=== PATIENT | female | born 1975 ===

== ENCOUNTER 2017-07-15 09:37 | Emergency (ER) | payer OTHER ==
[2017-07-15 09:40] VITALS: BMI 38.7
[2017-07-15 09:43] VITALS: O2SAT 100
--- NOTE | 2017-07-15 09:56 | C.PDOC ---
History Of Present Illness 42 yo female, no prior hxm presents with low back pain x 2 years, getting worse. pt states pain worse to right paralumbar region, wores with movement. never saw pmd. no urinary symptoms, no hematuria. no saddle anesthesia. Time Seen by Provider: 07/15/17 09:44 Chief Complaint (Nursing): Back Pain Past Medical History Reviewed: Historical Data, Nursing Documentation, Vital Signs Vital Signs: Last Vital Signs Temp 98.0 F 07/15/17 11:35 Pulse 89 07/15/17 11:35 Resp 18 07/15/17 11:35 BP 115/75 07/15/17 11:35 Pulse Ox 100 07/15/17 12:07 - Medical History PMH: Back Problems Family History: States: Unknown Family Hx - Social History Hx Alcohol Use: No Hx Substance Use: No - Immunization History Hx Tetanus Toxoid Vaccination: No Hx Influenza Vaccination: No Hx Pneumococcal Vaccination: No Review Of Systems Musculoskeletal: Positive for: Back Pain Physical Exam - Physical Exam Appears: Well, No Acute Distress Skin: Normal Color, Warm, Dry Eye(s): bilateral: Normal Inspection, PERRL, EOMI Nose: Normal Throat: Normal Neck: Normal Cardiovascular: Rhythm Regular Respiratory: Normal Breath Sounds Gastrointestinal/Abdominal: Normal Exam, Soft, No Tenderness, No Guarding, No Rebound Back: Normal Inspection, No Vertebral Tenderness, Paraspinal Tenderness ((+) lumbar, right) Extremity: Normal ROM ED Course And Treatment O2 Sat by Pulse Oximetry: 100 Medical Decision Making Medical Decision Making: xr nofx as read by me. no saddle anesthesia, neuro intact. no urinary symptoms advsise outpt fu and return precautions Disposition - Disposition Referrals: [facility] [Outside] [facility] [Outside] Brannon Rivera MD [Non-Staff] - Disposition: HOME/ ROUTINE Disposition Time: 11:00 Condition: STABLE Additional Instructions: please follow up with your doctor/clinic and specailist. return to er with worsening symptoms or concerns. you may need further diagnostic workup as an outpatient. Prescriptions: Cyclobenzaprine [Cyclobenzaprine HCl] 10 mg PO DAILY PRN #10 tab PRN Reason: Muscle Spasm Naproxen [Naprosyn] 500 mg PO BID PRN #14 tablet PRN Reason: Pain, Mild (1-3) Instructions: Low Back Pain (DC) Forms: [employer] (German) Print Language: GABONESE - Clinical Impression Clinical Impression: Low back pain
--- NOTE | 2017-07-15 11:37 | RAD ---
PROCEDURE: Lumbar spine dated 07/15/2017 Three views of the lumbar spine performed. HISTORY: Back pain COMPARISON: No prior. FINDINGS: BONES: No acute compression fractures nor retropulsed fragments. Chronic appearing anterior compression deformity of the T12 segment. . The remaining vertebral bodies otherwise exhibit normal stature. Vertebral bodies and facets normally aligned. DISC SPACES: Minor multilevel degenerative spondylosis. Facet joints are mildly hypertrophic L5-S1 through the L 2 L3 levels in decreasing order of severity. . Small marginal anterior osteophytes are present at several levels OTHER FINDINGS: None. IMPRESSION: Chronic anterior wedge compression deformity T12 segment. No acute compression fractures. Minor multilevel degenerative spondylosis as above
[2017-07-15 11:39] VITALS: BP 115/75; PULSE 89; RESP 18; TEMP 98
== END 2017-07-15 11:35 | disposition home or self-care (01) ==
LOC: C.ER 09:37
DX: M54.5 Low back pain (principal)
CPT/HCPCS: 72100; 96372; 99284; J1885